=== PATIENT | female | born 1975 | race Two or more races ===

== ENCOUNTER 2024-03-27 21:30 | Emergency (ER) | payer BC ==
[~2024-03-27] VITALS: Ht 157.5 cm; Wt 84.1 kg
[2024-03-27] MEDS: pantoprazole 40 MG vial IV STA (22:16)
[2024-03-27] MEDS: normal saline 1000ml 1,000 ML IV ONE (22:17)
[2024-03-27] MEDS: ondansetron/PF 4mg/2ml inj IV ONE (22:17)
[2024-03-27 22:24] LABS: BILIRUBIN,URINE NEGATIVE (Neg); CLARITY,URINE SLIGHTLY CLOUDY (Clear); COLOR,URINE YELLOW (Yellow); GLUCOSE, URINE 250 mg/dl (Neg); KETONES,URINE >=80 mg/dl (Neg); LEUKOCYTE ESTERASE ,URINE NEGATIVE (Neg); NITRITES, URINE NEGATIVE (Neg); OCCULT BLOOD,URINE SMALL (Neg); PROTEIN,URINE 100 mg/dl (Neg); UROBILINOGEN,URINE 0.2 E.U/dL (0.2-1.0)
[2024-03-27 22:27] LABS: UA COLLECTION TYPE CLN CATCH MIDSTREAM
[2024-03-27 22:29] LABS: BASOPHILS % (AUTO) 0.4 % (0-1); EOSINOPHILS % (AUTO) 0 % (0-6); HEMATOCRIT 38.3 % (35.0-45.0); HEMOGLOBIN 12.7 g/dl (12.0-16.0); LYMPHOCYTES # (AUTO) 1.4 X10'3 (1.1-4.8); LYMPHOCYTES % (AUTO) 12.6 % (21-51); MEAN CORPUSCULAR HEMOGLOBIN 27.1 PG (27.0-31.0); MEAN CORPUSCULAR HGB CONC 33.2 g/dL (33.0-36.5); MEAN CORPUSCULAR VOLUME 81.6 FL (78-98); MEAN PLATELET VOLUME 10.1 FL (7.4-10.4); MONOCYTES # (AUTO) 0.3 X10'3 (0-0.9); MONOCYTES % (AUTO) 2.7 % (2-12); NEUTROPHILS # (AUTO) 9.3 X10'3 (1.8-7.7); NEUTROPHILS % (AUTO) 84.3 % (42-75); PLATELET COUNT 262 X10'3 (140-440); RED CELL DISTRIBUTION WIDTH 14.9 % (11.5-14.5)
[2024-03-27 22:30] LABS: SQUAMOUS EPITHELIAL CELL,UR MANY /LPF (FEW)
[2024-03-27 22:32] LABS: BACTERIA,URINE FEW /HPF (Neg); MUCUS STRANDS MANY /LPF (Neg)
[2024-03-27 22:42] LABS: ALANINE AMINOTRANSFERASE 21 U/L (12-78); ALBUMIN 3.8 G/DL (3.4-5.0); ALKALINE PHOSPHATASE 59 IU/L (46-116); ANION GAP 10 (8-16); ASPARTATE AMINO TRANSFERASE 13 U/L (10-37); BILIRUBIN,TOTAL 0.5 MG/DL (0.1-1.0); BLOOD UREA NITROGEN 6 MG/DL (7-18); BUN/CREATININE RATIO 9.2 (10.0-20.0); CHLORIDE 97 MMOL/L (99-107); CREATININE 0.65 MG/DL (0.40-0.90); GLUCOSE 165 MG/DL (70-104); POTASSIUM 3.3 MMOL/L (3.5-5.1); SODIUM 132 MMOL/L (135-145); TOTAL CARBON DIOXIDE 25.1 MMOL/L (24-32); TOTAL PROTEIN 7.7 G/DL (6.4-8.2); eCRCL 82 ML/MIN; eGFR > 90 ML/MIN
[2024-03-27 22:46] LABS: LIPASE 28 U/L (16-77)
[2024-03-27] MEDS: morphine 4 MG/ML inj SYRINge IV ONE (23:14)
[2024-03-28] MEDS ORDERED: OMEP40CA21 PO (00:21)
[2024-03-28] MEDS ORDERED: ONDA-243 PO (00:21)
[2024-03-28] MEDS ORDERED: SUCR1ORA12 PO (00:22)
[2024-03-28 01:08] VITALS: BP 123/73; PULSE 69; RESP 18; TEMP 98.3; O2SAT 98
== END 2024-03-28 01:09 | disposition home or self-care (01) ==
LOC: ER 21:30
DX: R10.84 Generalized abdominal pain (principal); R11.10 Vomiting, unspecified; N39.0 Urinary tract infection, site not specified; Z88.8 Allergy status to other drugs, medicaments and biological substances
CPT/HCPCS: 36415; 80053; 81001; 83690; 84484; 85025; 93005; 96365; 96375; 99285; J2270; J2405; J2470; J7030